=== PATIENT | male | born 1985 | race Caucasian/White ===

== ENCOUNTER 2016-10-16 17:47 | Inpatient (IN) | payer OTHER ==
[~2016-10-16] VITALS: Ht 180.3 cm; Wt 75.5 kg
[~2016-10-16 17:47] MED LIST: AMBIEN; AMBIEN10 MG PO; DIVALPROEX SOD500 M1 PO; MOTRIN800 MG PO; NAPROSYN375 MG PO; NAPROXEN500 MG PO; PERCOCET 5/31 TABLET PO; RISPERDAL1 MG PO; RISPERDAL3 MG PO; TEMAZEPAM15 MG PO; TRAMADOL HCL50 MG PO; TRILEPTAL300 MG PO; TRILEPTAL600 MG PO; VYVANSE30 MG PO; VYVANSE40 MG PO; VYVANSE50 MG PO
[2016-10-16 18:45] LABS: HEMATOCRIT 49.7 % (38.0-50.0); MCH 30.8 PG (29.0-34.0); MCHC 33.8 G/DL (30.0-36.0); MEAN PLAT.VOLUME 10.4 uM^3 (9.0-12.4); PLATELET COUNT 269 K/uL (156-360); RBC DIS.WIDTH-CV 13.7 % (11.8-14.6); RBC DIS.WIDTH-SD 46.1 % (39-53); RED BLOOD COUNT 5.46 M/uL (4.00-5.50); WHITE BLOOD COUNT 12.2 K/uL (4.1-10.2)
[2016-10-16 18:55] LABS: CHLORIDE 106 mEq/L (99-109); POTASSIUM 4.3 mEq/L (3.7-5.4); SODIUM 144 mEq/L (136-147)
[2016-10-16 18:58] LABS: GLUCOSE 85 mg/dL (70-99)
[2016-10-16 18:59] LABS: ANION GAP 11 MEQ/L (2-14); TOTAL BILIRUBIN 1.3 mg/dL (0.0-1.0)
[2016-10-16 19:00] LABS: SERUM ETHYL ALCOHOL 93 mg/dL
[2016-10-16 19:01] LABS: ALKALINE PHOSPHATASE 75 IU/L (3-129); GFR ESTIMATE (CALCULATED) > 59 mL/min/
[2016-10-16 19:02] LABS: UREA NITROGEN (BUN) 8 mg/dL (9-23)
[2016-10-16] MEDS ORDERED: DIVALPROEX SOD250 M1 PO (21:24)
[2016-10-16] MEDS ORDERED: VYVANSE20 MG PO (21:25)
[2016-10-16] MEDS ORDERED: BENZTROPINE ME0.5 MG PO (21:27)
[2016-10-16] MEDS ORDERED: SEROQUEL100 MG PO (21:28)
[2016-10-16] MEDS ORDERED: ABILIFY10 MG PO (21:28)
[2016-10-16] MEDS ORDERED: DEPAKOTE ER500 MG PO (21:29)
[2016-10-16 22:01] LABS: ADD MIUA? YES; BILIRUBIN NEGATIVE; BLOOD NEGATIVE; COLOR STRAW ((YELLOW)); GLUCOSE (STRIP) NEGATIVE; KETONES NEGATIVE; LEUKOCYTES NEGATIVE; NITRITE NEGATIVE; PROTEIN (STRIP) NEGATIVE; SPECIFIC GRAVITY 1.005 (1.000-1.030); UROBILINOGEN 0.2 MG/DL (0.2-1.0)
[2016-10-16 22:24] LABS: ADD MEDTOX COMMENT Y; AMPHETAMINE PRESUMPTIVE POSITIVE (500 ng/mL); BARBITURATES NEGATIVE (200 ng/mL); BENZODIAZEPINES PRESUMPTIVE POSITIVE (150 ng/mL); COCAINE NEGATIVE (150 ng/mL); INTERNAL CONTROLS VALID? YES; METHADONE NEGATIVE (200 ng/mL); METHAMPHETAMINE NEGATIVE (500 ng/mL); OPIATES (MORPHINE) NEGATIVE (100 ng/mL); OXYCODONE NEGATIVE (100 ng/mL); PHENCYCLIDINE NEGATIVE (25 ng/mL); PROPOXYPHENE NEGATIVE (300 ng/mL); THC CANNABINOIDS NEGATIVE (50 ng/mL); TRICYCLIC ANTIDEPRESSANTS NEGATIVE (300 ng/mL)
[2016-10-16 22:33] LABS: BACTERIA 1+ /HPF; EPITHELIAL CELLS NONE SEEN /HPF; MUCUS NONE SEEN /LPF; RED BLOOD CELLS 0-5 /HPF (0-5); WHITE BLOOD CELLS 0-5 /HPF (0-5)
[2016-10-16 22:34] LABS: OTHER SPERM CELLS
[2016-10-16 23:10] LABS: BENZODIAZEPINES, URINE SCREEN POSITIVE (200 ng/mL)
[2016-10-17 14:51] VITALS: BP 133/83
[2016-10-17 15:50] VITALS: BP 133/83
[2016-10-17] MEDS ORDERED: RISPERDAL3 MG PO ×2 (16:47→21:04)
[2016-10-17] MEDS ORDERED: DEPAKOTE ER250 MG PO (21:01)
[2016-10-17] MEDS ORDERED: DEPAKOTE ER500 MG PO (21:02)
[2016-10-17] MEDS ORDERED: RISPERDAL1 MG PO (21:03)
[2016-10-18 08:03] VITALS: BP 132/78
[2016-10-18 15:45] VITALS: BP 128/68
[2016-10-19 08:11] VITALS: BP 116/68
[2016-10-19 15:48] VITALS: BP 154/88
[2016-10-19 18:48] VITALS: BP 143/92
[2016-10-20 08:02] VITALS: BP 119/77
[2016-10-20 15:34] VITALS: BP 140/84
[2016-10-21 08:12] VITALS: BP 111/59
[2016-10-21] MEDS ORDERED: FLUOXETINE HCL20 MG PO (10:17)
== END 2016-10-21 11:30 | disposition home or self-care (01) | DRG 885 ==
LOC: EME 17:47 → 1WEST 10-17 12:53 → EDOF 10-17 12:53 → 1WEST 10-17 14:52
PROVIDERS: Emergency Medicine
DX: F33.1 Major depressive disorder, recurrent, moderate (principal); F41.1 Generalized anxiety disorder; F10.20 Alcohol dependence, uncomplicated; R45.851 Suicidal ideations
CPT/HCPCS: 80053; 81003; 84999; 85027; 90839; 97150 GO; 97165 GO; 99281; 99285; G0480; Q0177

== ENCOUNTER 2017-01-07 18:22 | Inpatient (IN) | payer OTHER ==
[~2017-01-07] VITALS: Ht 180.3 cm; Wt 68.4 kg
[~2017-01-07 18:22] MED LIST changes: +ABILIFY10 MG PO; +BENZTROPINE ME0.5 MG PO; +DEPAKOTE ER250 MG PO; +DEPAKOTE ER500 MG PO; +DIVALPROEX SOD250 M1 PO; +FLUOXETINE HCL20 MG PO; +SEROQUEL100 MG PO; +VYVANSE20 MG PO
[2017-01-07 18:54] LABS: HEMATOCRIT 50.5 % (38.0-50.0); MCH 30.2 PG (29.0-34.0); MCHC 32.9 G/DL (30.0-36.0); MEAN PLAT.VOLUME 11.4 uM^3 (9.0-12.4); PLATELET COUNT 231 K/uL (156-360); RBC DIS.WIDTH-CV 13.2 % (11.8-14.6); RBC DIS.WIDTH-SD 44.8 % (39-53); RED BLOOD COUNT 5.49 M/uL (4.00-5.50); WHITE BLOOD COUNT 14.1 K/uL (4.1-10.2)
[2017-01-07 19:05] LABS: CHLORIDE 103 mEq/L (99-109); POTASSIUM 3.8 mEq/L (3.7-5.4); SODIUM 140 mEq/L (136-147)
[2017-01-07 19:07] LABS: GLUCOSE 102 mg/dL (70-99)
[2017-01-07 19:08] LABS: ANION GAP 8 MEQ/L (2-14)
[2017-01-07 19:10] LABS: SERUM ETHYL ALCOHOL < 10 mg/dL
[2017-01-07 19:11] LABS: GFR ESTIMATE (CALCULATED) > 59 mL/min/
[2017-01-07 19:12] LABS: UREA NITROGEN (BUN) 12 mg/dL (9-23)
[2017-01-07 21:55] LABS: AMPHETAMINE NEGATIVE (500 ng/mL); BARBITURATES NEGATIVE (200 ng/mL); BENZODIAZEPINES NEGATIVE (150 ng/mL); COCAINE PRESUMPTIVE POSITIVE (150 ng/mL); INTERNAL CONTROLS VALID? YES; METHADONE NEGATIVE (200 ng/mL); METHAMPHETAMINE NEGATIVE (500 ng/mL); OPIATES (MORPHINE) PRESUMPTIVE POSITIVE (100 ng/mL); OXYCODONE NEGATIVE (100 ng/mL); PHENCYCLIDINE NEGATIVE (25 ng/mL); PROPOXYPHENE NEGATIVE (300 ng/mL); THC CANNABINOIDS PRESUMPTIVE POSITIVE (50 ng/mL); TRICYCLIC ANTIDEPRESSANTS NEGATIVE (300 ng/mL)
[2017-01-07 21:56] LABS: ADD MEDTOX COMMENT Y
[2017-01-08 01:12] VITALS: BP 131/76
[2017-01-08] MEDS ORDERED: SAPHRIS10 MG PO (01:23)
[2017-01-08] MEDS ORDERED: ABILIFY30 MG PO (01:25)
[2017-01-08] MEDS ORDERED: RISPERDAL1 MG PO (01:26)
[2017-01-08] MEDS ORDERED: RISPERDAL3 MG PO (01:28)
[2017-01-08] MEDS ORDERED: SEROQUEL300 MG PO (01:30)
[2017-01-08 07:20] VITALS: BP 113/53
[2017-01-08 15:45] VITALS: BP 130/63
[2017-01-09 07:43] VITALS: BP 91/50
[2017-01-09 09:09] VITALS: BP 113/68
[2017-01-09] MEDS ORDERED: DIVALPROEX SOD500 M1 PO (11:39)
[2017-01-09] MEDS ORDERED: ABILIFY30 MG PO (11:39)
== END 2017-01-09 13:16 | disposition other institution (70) | DRG 885 ==
LOC: EME 18:22 → 1WEST 22:32 → EDOF 22:32 → 1WEST 01-08 00:48
DX: F31.9 Bipolar disorder, unspecified (principal); T40.1X2A Poisoning by heroin, intentional self-harm, initial encounter; F11.23 Opioid dependence with withdrawal; F10.20 Alcohol dependence, uncomplicated; F12.90 Cannabis use, unspecified, uncomplicated; F13.90 Sedative, hypnotic, or anxiolytic use, unspecified, uncomplicated; F41.1 Generalized anxiety disorder; F17.200 Nicotine dependence, unspecified, uncomplicated
CPT/HCPCS: 80048; 84999; 85027; 90839; 97150 GO; 97165 GO; 99281; 99285; G0480; J0572; J0574; Q0177

== ENCOUNTER 2017-03-01 01:04 | Inpatient (IN) | payer OTHER ==
[~2017-03-01] VITALS: Ht 180.3 cm; Wt 67.4 kg
[~2017-03-01 01:04] MED LIST changes: +ABILIFY30 MG PO; +SAPHRIS10 MG PO; +SEROQUEL300 MG PO
[2017-03-01 02:12] LABS: ADD MIUA? YES; BILIRUBIN NEGATIVE; BLOOD SMALL; COLOR YELLOW ((YELLOW)); GLUCOSE (STRIP) NEGATIVE; KETONES NEGATIVE; LEUKOCYTES NEGATIVE; NITRITE NEGATIVE; PROTEIN (STRIP) 30; SPECIFIC GRAVITY 1.025 (1.000-1.030); UROBILINOGEN 0.2 MG/DL (0.2-1.0)
[2017-03-01 02:18] LABS: BACTERIA NONE SEEN /HPF; EPITHELIAL CELLS NONE SEEN /HPF; MUCUS 2+ /LPF; RED BLOOD CELLS 0-5 /HPF (0-5); UCUL ADDED? NO; WHITE BLOOD CELLS 0-5 /HPF (0-5)
[2017-03-01 02:26] LABS: ADD MEDTOX COMMENT Y; AMPHETAMINE NEGATIVE (500 ng/mL); BARBITURATES NEGATIVE (200 ng/mL); BENZODIAZEPINES NEGATIVE (150 ng/mL); COCAINE PRESUMPTIVE POSITIVE (150 ng/mL); INTERNAL CONTROLS VALID? YES; METHADONE NEGATIVE (200 ng/mL); METHAMPHETAMINE NEGATIVE (500 ng/mL); OPIATES (MORPHINE) NEGATIVE (100 ng/mL); OXYCODONE NEGATIVE (100 ng/mL); PHENCYCLIDINE NEGATIVE (25 ng/mL); PROPOXYPHENE NEGATIVE (300 ng/mL); THC CANNABINOIDS PRESUMPTIVE POSITIVE (50 ng/mL); TRICYCLIC ANTIDEPRESSANTS NEGATIVE (300 ng/mL)
[2017-03-01 02:48] LABS: HEMATOCRIT 44.4 % (38.0-50.0); MCH 29.5 PG (29.0-34.0); MCHC 33.3 G/DL (30.0-36.0); MCV 88.6 FL (86-99); MEAN PLAT.VOLUME 10.9 uM^3 (9.0-12.4); PLATELET COUNT 244 K/uL (156-360); RBC DIS.WIDTH-CV 14.1 % (11.8-14.6); RBC DIS.WIDTH-SD 45.5 % (39-53); RED BLOOD COUNT 5.01 M/uL (4.00-5.50); WHITE BLOOD COUNT 15.4 K/uL (4.1-10.2)
[2017-03-01 03:00] LABS: CHLORIDE 105 mEq/L (99-109); POTASSIUM 3.4 mEq/L (3.7-5.4); SODIUM 142 mEq/L (136-147)
[2017-03-01 03:02] LABS: GLUCOSE 122 mg/dL (70-99)
[2017-03-01 03:03] LABS: ANION GAP 10 MEQ/L (2-14)
[2017-03-01 03:05] LABS: SERUM ETHYL ALCOHOL < 10 mg/dL
[2017-03-01 03:06] LABS: GFR ESTIMATE (CALCULATED) > 59 mL/min/; UREA NITROGEN (BUN) 14 mg/dL (9-23)
[2017-03-01 09:19] VITALS: BP 120/70
[2017-03-01 10:47] VITALS: BP 120/70
[2017-03-01 16:16] VITALS: BP 117/66
[2017-03-02 07:25] VITALS: BP 110/59
[2017-03-02 15:39] VITALS: BP 112/65
[2017-03-03 07:41] VITALS: BP 128/60
[2017-03-03] MEDS ORDERED: EFFEXOR37.5 MG PO (09:14)
[2017-03-03] MEDS ORDERED: ARIPIPRAZOLE10 MG PO (09:14)
[2017-03-03] MEDS ORDERED: TEGRETOL-XR,CA100 MG PO (09:14)
[2017-03-03] MEDS ORDERED: ATARAX,VISTARIL50 MG PO (09:15)
== END 2017-03-03 11:35 | disposition home or self-care (01) | DRG 885 ==
LOC: EME 01:04 → 1WEST 03:57 → EDOF 03:57 → ENRESERV 07:00 → 1WEST 09:17
PROVIDERS: Emergency Medicine
DX: F31.9 Bipolar disorder, unspecified (principal); F11.20 Opioid dependence, uncomplicated; R45.850 Homicidal ideations; R45.851 Suicidal ideations; F41.1 Generalized anxiety disorder; F10.20 Alcohol dependence, uncomplicated; F12.90 Cannabis use, unspecified, uncomplicated; F14.90 Cocaine use, unspecified, uncomplicated; F17.200 Nicotine dependence, unspecified, uncomplicated; Z81.8 Family history of other mental and behavioral disorders
CPT/HCPCS: 80048; 81003; 84999; 85027; 90837; 97150 GO; 97165 GO; 99281; 99285; G0480; Q0177

== ENCOUNTER 2017-09-24 03:26 | Emergency (ER) | payer OTHER ==
[~2017-09-24] VITALS: Ht 180.3 cm; Wt 74.6 kg
[~2017-09-24 03:26] MED LIST changes: +ARIPIPRAZOLE10 MG PO; +ATARAX,VISTARIL50 MG PO; +EFFEXOR37.5 MG PO; +TEGRETOL-XR,CA100 MG PO
[2017-09-24 03:40] LABS: HEMOGLOBIN 15.1 G/DL (12.5-16.6); MCH 30.8 PG (29.0-34.0); MCHC 34.3 G/DL (30.0-36.0); MCV 89.6 FL (86-99); PLATELET COUNT 218 K/uL (156-360); RBC DIS.WIDTH-CV 14.5 % (11.8-14.6); RBC DIS.WIDTH-SD 47.2 % (39-53); RED BLOOD COUNT 4.91 M/uL (4.00-5.50); WHITE BLOOD COUNT 14.4 K/uL (4.1-10.2)
[2017-09-24 03:50] LABS: CHLORIDE 109 mEq/L (99-109); POTASSIUM 3.8 mEq/L (3.7-5.4); SODIUM 143 mEq/L (136-147)
[2017-09-24 03:52] LABS: GLUCOSE 111 mg/dL (70-99)
[2017-09-24 03:55] LABS: CREATININE 0.9 mg/dL (0.6-1.3); GFR ESTIMATE (CALCULATED) > 59 mL/min/ (58.99-99999)
[2017-09-24 03:56] LABS: UREA NITROGEN (BUN) 13 mg/dL (9-23)
[2017-09-24] MEDS ORDERED: ZOFRAN4 MG PO (07:14)
[2017-09-24 07:31] VITALS: BP 132/76
== END 2017-09-24 07:32 | disposition home or self-care (01) ==
LOC: EME 03:26
DX: B34.9 Viral infection, unspecified (principal); F17.200 Nicotine dependence, unspecified, uncomplicated; F90.9 Attention-deficit hyperactivity disorder, unspecified type; Z88.5 Allergy status to narcotic agent; Z88.6 Allergy status to analgesic agent
CPT/HCPCS: 71046; 80048; 85027; 99281; 99284